=== PATIENT | female | born 1965 | race Caucasian/White ===

== ENCOUNTER 2016-06-18 16:42 | Emergency (ER) | payer BC ==
[~2016-06-18] VITALS: Ht 162.6 cm; Wt 85.0 kg
[~2016-06-18 16:42] MED LIST: ADDE20XR PO; ASPI81TA82 PO; BUPR150XL; LORA2TAB PO; RANI150T PO; SERT-129 PO
[2016-06-18 16:45] VITALS: BP 160/80; PULSE 108; RESP 24; TEMP 97.7; O2SAT 98
[2016-06-18 17:02] VITALS: BP 160/80; PULSE 108; RESP 24; TEMP 97.7; O2SAT 98
[2016-06-18] MEDS ORDERED: BUPR1TAB29 PO ×2 (17:15→17:16)
[2016-06-18] MEDS ORDERED: LORA2TAB7 PO (17:15)
[2016-06-18] MEDS ORDERED: VENL75TA PO ×2 (17:15→17:16)
--- NOTE | 2016-06-18 17:15 | PD ---
HPI Chief Complaint: Medication Refill Request Time Seen by Provider: 17:13 Travel History International Travel<30 days: No Contact w/Intl Traveler<30days: No Traveled to known affect area: No History of Present Illness HPI Patient comes in requesting refills of her Effexor and Wellbutrin. Patient states she feels that she is going through withdrawal from being on them for about for 5 days. Patient denies any suicidal or homicidal ideations. Patient states that she did try to contact her primary care doctor's office that she is not able to get to get a refill without being seen in the office. Patient denies any other medical complaints or concerns. Denies any chest pain, shortness of breath, fevers, or headaches. She has her bottles with her including her lorazepam which she still has plenty left. PFSH Past Medical History Arthritis: Yes Asthma: Yes Anxiety: Yes Depression: Yes Cancer: No Cardiovascular Problems: No Diabetes: No Endocrine: No GERD: Yes Genitourinary: No Headaches: Yes Hepatitis: No Hiatal Hernia: No Immune Disorder: No Musculoskeletal: Yes (CHRONIC NECK PAIN) Neurologic: Yes (VERTIGO ) Psychiatric: Yes Reproductive: Yes (FIBROIDS) Respiratory: Yes (ASTHMA) Thyroid Disease: No Tetanus Vaccination: Unknown Influenza Vaccination: No ?: Not Dilation and Curettage (D&C): Yes Past Surgical History Abdominal Surgery: No AICD: No Body Medical Devices: NONE Cardiac Surgery: No Ear Surgery: No Eye Surgery: No Gynecologic Surgery: Yes (D&C 1994) Joint Replacement: No Oral Surgery: Yes Pacemaker: No Thoracic Surgery: No Other Surgery: Yes Social History Alcohol Use: No Tobacco Use: No Substance Use: No Allergies-Medications (Allergen,Severity, Reaction): Coded Allergies: Codeine (Verified Allergy, Severe, 06/18/16) EXTREME NAUSEA ; PASSED OUT-FELL Reported Meds & Prescriptions Reported Meds & Active Scripts Active Effexor (Venlafaxine HCl) 75 Mg Tab 75 Mg PO DAILY 14 Days Bupropion HCl ER 12 HR (Bupropion HCl) 150 Mg Tab 150 Mg PO Q12HR 14 Days Reported Lorazepam 2 Mg Tab 2 Mg PO QID PRN Review of Systems Except as stated in HPI: all other systems reviewed are Neg Physical Exam Narrative GENERAL: Well-developed, overly nourished, in no acute distress, and non-ill appearing. Sobbing on exam. SKIN: Warm and dry. HEAD: Atraumatic. Normocephalic. EYES: Pupils equal and round. EOMI. No scleral icterus. No injection or drainage. ENT: No nasal bleeding or discharge. Mucous membranes pink and moist. NECK: Trachea midline. Supple. No nuclear rigidity. RESPIRATORY: No accessory muscle use. No respiratory distress. MUSCULOSKELETAL: No obvious deformities. No clubbing. No cyanosis. No edema. Full range of motion. NEUROLOGICAL: Awake and alert. No obvious cranial nerve deficits. Motor grossly within normal limits. Normal speech. PSYCHIATRIC: Appropriate mood and affect; insight and judgment normal. Data Data Last Documented VS Vital Signs Date Time Temp Pulse Resp B/P Pulse Ox O2 Delivery O2 Flow Rate FiO2 06/18/16 17:02 97.7 108 24 160/80 98 Room Air MDM Medical Decision Making Medical Screen Exam Complete: Yes Emergency Medical Condition: No Differential Diagnosis Medication refill, depression, other Narrative Course Patient in no obvious distress upon re-evaluation. Patient was asked if they wanted to speak to my attending, which the patient did not wish to do at this time. Any questions/concerns in reference to patient diagnosis/condition discussed and clarified prior to patient's discharge. Reinforced sheer importance of close follow up with patient's primary physician or primary care clinic. Instructed patient to return to ED immediately, if symptoms return/ worsen. Pt showed understanding of above instructions. Further instructions and recommendations were detailed in discharge paperwork. Pt ambulated without difficulty out of ED at discharge. Diagnosis Primary Impression: Medication refill Referrals: [facility] Patient Instructions: General Instructions, Medication Refill, ED Additional Instructions: Follow-up with your primary care physician and/or Herbie Coffey for additional medication refills. Take all medication as prescribed. Return to the emergency department if symptoms get worse. Med/Other Pt SpecificInfo: Prescription(s) given Scripts Venlafaxine (Effexor)75 Mg Tab75 Mg PO DAILY 14 Days Ref 0 Prov:Nelly Venegas MD 06/18/16 Bupropion HCl ER 12 HR 150 Mg [id number] Mg PO Q12HR 14 Days Ref 0 Prov:Nelly Venegas MD 06/18/16 Disposition: 01 DISCHARGE HOME Condition: Stable Freddy Pittman Jun 18, 2016 17:15
== END 2016-06-18 17:53 | disposition home or self-care (01) ==
LOC: NEPB 16:42
DX: R44.9 Unspecified symptoms and signs involving general sensations and perceptions (principal); Z86.59 Personal history of other mental and behavioral disorders; Z87.19 Personal history of other diseases of the digestive system; Z87.39 Personal history of other diseases of the musculoskeletal system and connective tissue; Z86.69 Personal history of other diseases of the nervous system and sense organs; Z87.42 Personal history of other diseases of the female genital tract; Z87.09 Personal history of other diseases of the respiratory system; Z76.0 Encounter for issue of repeat prescription
CPT/HCPCS: 99281

== ENCOUNTER 2016-07-05 17:33 | Emergency (ER) | payer BC ==
[~2016-07-05] VITALS: Ht 162.6 cm; Wt 80.0 kg
[~2016-07-05 17:33] MED LIST changes: -ADDE20XR PO; -ASPI81TA82 PO; -BUPR150XL; +BUPR1TAB29 PO; -LORA2TAB PO; +LORA2TAB7 PO; -RANI150T PO; -SERT-129 PO; +VENL75TA PO
[2016-07-05 17:39] VITALS: BP 172/98; PULSE 110; RESP 24; TEMP 97.9; O2SAT 97
--- NOTE | 2016-07-05 18:27 | PD ---
HPI Chief Complaint: GI Complaint Time Seen by Provider: 18:27 Travel History International Travel<30 days: No Contact w/Intl Traveler<30days: No Traveled to known affect area: No History of Present Illness HPI 51-year-old female with history of anxiety, presents to emergency department for evaluation. Patient states over the last 6 months she has lost 47 pounds unintentionally. She has been under a lot of stress and is being evicted from her home. She has only been able to eat canned ravioli because that is all she can afford. She states that she has recovery from 2 concussions. One of them occurred in 2013 and the other in 2014. She states she is unable to find work. She has had episodes of nausea after eating the ravioli. She states this causes her to not want to eat anything else. She denies a chest tightness. No difficulty breathing. No recent illnesses, fever, or chills. Patient states that she was at her primary care provider's office yesterday. She told him about her symptoms and he did routine lab work. She is concerned because he forgot to check her urine. She states she has had decreased urine output and burning with urination. She has no other symptoms reported this time. PFSH Past Medical History Arthritis: Yes Asthma: Yes Anxiety: Yes Depression: Yes Cancer: No Cardiovascular Problems: No Diabetes: No Endocrine: No GERD: Yes Genitourinary: No Headaches: Yes Hepatitis: No Hiatal Hernia: No Immune Disorder: No Musculoskeletal: Yes (CHRONIC NECK PAIN) Neurologic: Yes (VERTIGO ) Psychiatric: Yes Reproductive: Yes (FIBROIDS) Respiratory: Yes (ASTHMA) Thyroid Disease: No Dilation and Curettage (D&C): Yes Past Surgical History Abdominal Surgery: No AICD: No Body Medical Devices: NONE Cardiac Surgery: No Ear Surgery: No Eye Surgery: No Gynecologic Surgery: Yes (D&C 1994) Joint Replacement: No Oral Surgery: Yes Pacemaker: No Thoracic Surgery: No Other Surgery: Yes Social History Alcohol Use: No Tobacco Use: No Substance Use: No Allergies-Medications (Allergen,Severity, Reaction): Coded Allergies: Codeine (Verified Allergy, Severe, 07/05/16) EXTREME NAUSEA ; PASSED OUT-FELL Reported Meds & Prescriptions Reported Meds & Active Scripts Active Effexor (Venlafaxine HCl) 75 Mg Tab 75 Mg PO DAILY 14 Days Bupropion HCl ER 12 HR (Bupropion HCl) 150 Mg Tab 150 Mg PO Q12HR 14 Days Reported Lorazepam 2 Mg Tab 2 Mg PO QID PRN Review of Systems Except as stated in HPI: all other systems reviewed are Neg Physical Exam Narrative GENERAL: Well-nourished female patient, ambulatory no acute distress SKIN: Warm and dry. HEAD: Atraumatic. Normocephalic. EYES: Pupils equal and round. No scleral icterus. No injection or drainage. ENT: No nasal bleeding or discharge. Mucous membranes pink and moist. NECK: Trachea midline. No JVD. CARDIOVASCULAR: Regular rate and rhythm. No murmur appreciated. RESPIRATORY: No accessory muscle use. Clear to auscultation. Breath sounds equal bilaterally. GASTROINTESTINAL: Abdomen soft, nondistended. Suprapubic tenderness to palpation. Hepatic and splenic margins not palpable. MUSCULOSKELETAL: No obvious deformities. No clubbing. No cyanosis. No edema. NEUROLOGICAL: Awake and alert. No obvious cranial nerve deficits. Motor grossly within normal limits. Normal speech. PSYCHIATRIC: Depressed mood, tearful, flat affect Data Data Last Documented VS Vital Signs Date Time Temp Pulse Resp B/P Pulse Ox O2 Delivery O2 Flow Rate FiO2 07/05/16 19:05 90 18 99 Room Air 07/05/16 17:39 97.9 172/98 Orders Ondansetron Odt (Zofran Odt) (07/05/16 18:30) Urinalysis - C+S If Indicated (07/05/16 18:31) Urine Culture (07/05/16 19:35) Labs Laboratory Tests Test 07/05/16 19:35 Urine Color DARK-YELLOW Urine Turbidity CLOUDY Urine pH 5.5 Urine Specific [place] 1.030 Urine Protein 30 mg/dL Urine Glucose (UA) NEG mg/dL Urine Ketones TRACE mg/dL Urine Occult Blood NEG Urine Nitrite NEG Urine Bilirubin NEG Urine Urobilinogen LESS THAN 2.0 MG/DL Urine Leukocyte Esterase LARGE Urine RBC 28 /hpf Urine WBC 17 /hpf Urine Squamous Epithelial 45 /hpf Cells Urine Bacteria RARE /hpf Urine Hyaline Casts 15 /lpf Urine Mucus MANY /lpf Microscopic Urinalysis Comment CULTURE INDICATED MDM Medical Decision Making Medical Screen Exam Complete: Yes Emergency Medical Condition: Yes Medical Record Reviewed: Yes Differential Diagnosis UTI versus gastritis versus indigestion versus gastroparesis versus anxiety versus adjustment reaction disorder Narrative Course 51-year-old female presents to emergency department for evaluation. Patient appears without distress. She is upset at first which is likely why her heart rate is elevated. Upon recheck it has decreased after we spoke to her and calmed her down. Patient was given Zofran which she states helped with her nausea. Urinalysis is complete and shows Laboratory Tests Test 07/05/16 19:35 Urine Color DARK-YELLOW Urine Turbidity CLOUDY Urine pH 5.5 Urine Specific [place] 1.030 Urine Protein 30 mg/dL Urine Glucose (UA) NEG mg/dL Urine Ketones TRACE mg/dL Urine Occult Blood NEG Urine Nitrite NEG Urine Bilirubin NEG Urine Urobilinogen LESS THAN 2.0 MG/DL Urine Leukocyte Esterase LARGE Urine RBC 28 /hpf Urine WBC 17 /hpf Urine Squamous Epithelial 45 /hpf Cells Urine Bacteria RARE /hpf Urine Hyaline Casts 15 /lpf Urine Mucus MANY /lpf Microscopic Urinalysis Comment CULTURE INDICATED Patient will be started on Keflex. She is discharged follow-up with her primary care provider. She agrees to return immediately with any acute worsening of symptoms. Diagnosis Primary Impression: Urinary tract infection Qualified Code: N39.0 - Urinary tract infection with hematuria, site unspecified Additional Impressions: Anxiety Adjustment reaction with anxiety and depression Referrals: Primary Care Physician Patient Instructions: Diet for Stomach Ulcers and Gastritis (ED), General Instructions, Urinary Tract Infection in Women (ED) Additional Instructions: Follow-up with a primary care provider Maintain adequate oral hydration Avoid acidic and abrasive foods Return immediately to the emergency department with any acute worsening symptoms. Med/Other Pt SpecificInfo: Prescription(s) given Scripts Ondansetron Odt (Zofran Odt)4 Mg Tab4 Mg SL Q6HR PRN (Nausea/Vomiting) #10 TAB Ref 0 Prov:Carine Morales 07/05/16 Cephalexin (Keflex)500 Mg [id number] Mg PO Q12H 7 Days Ref 0 Prov:Carine Morales 07/05/16 Disposition: 01 DISCHARGE HOME Condition: Stable Carine Morales Jul 05, 2016 18:27
[2016-07-05] MEDS ORDERED: ONDANSETRON ODT 4 MG TAB PO ONE (18:30)
[2016-07-05 19:05] VITALS: PULSE 90; RESP 18; O2SAT 99
[2016-07-05 19:52] LABS: BACTERIA, URINE RARE /hpf; BLOOD, URINE NEG (NEG); COMMENT (UR) CULTURE INDICATED; CULTURE IF INDICATED CULTURE INDICATED; GLUCOSE,URINE NEG (NEG); HYALINE CAST, URINE 15 /lpf (RARE); KETONE, URINE TRACE mg/dL (NEG); MUCUS URINE MANY /lpf (OCC); NITRITE,URINE NEG (NEG); PH, URINE 5.5 (5.0-8.5); SQUAMOUS EPITHELIAL CELL URINE 45 /hpf (0-5); URINE COLOR DARK-YELLOW (YELLW/STRAW)
[2016-07-05] MEDS ORDERED: ZOFR4TAB3 SL (20:39)
[2016-07-05] MEDS ORDERED: CEPH-460 PO (20:39)
== END 2016-07-05 21:40 | disposition home or self-care (01) ==
LOC: NETRI 20:00
DX: N39.0 Urinary tract infection, site not specified (principal); F41.9 Anxiety disorder, unspecified
CPT/HCPCS: 81001; 87086; 99284